=== PATIENT | male | born 1970 | race Caucasian/White ===

== ENCOUNTER 2018-10-29 03:12 | Inpatient (IN) | payer OTHER ==
[~2018-10-29] VITALS: Ht 185.4 cm; Wt 102.1 kg
[2018-10-29] MEDS ORDERED: NITROGLYCERIN OINT 1GM/INCH UDPKT TD ONE (03:30)
[2018-10-29] MEDS ORDERED: ONDANSETRON HCL 4MG/2ML INJ IV STA (03:30)
[2018-10-29] MEDS ORDERED: MORPHINE SULFATE 4 MG/ML CPJ (NOT FOR IM USE) IV STA (03:30)
[2018-10-29 04:09] LABS: BASOPHILS % 0.6 % (0.0-2.0); EOSINOPHILS % 1.4 % (0.0-5.0); HEMOGLOBIN. 15.5 g/dL (14.0-18.0); MEAN CORPUSCULAR HEMOGLOBIN 29.9 pg (28.0-32.0); MEAN CORPUSCULAR VOLUME 88.5 fL (80.0-94.0); MEAN PLATELET VOLUME 8.6 fl (7.4-10.4); MONOCYTES % 6.7 % (2.0-8.0); NEUTROPHILS % 81.3 % (40.0-76.0); PLATELET 222 x1000/uL (130-400)
[2018-10-29 04:10] LABS: CHLORIDE 107 mEq/L (98-107)
[2018-10-29] MEDS ORDERED: IOHEXOL-350 100 ML BOTTLE ONE (05:37)
[2018-10-29 09:00] VITALS: BP 138/78
[2018-10-29] MEDS ORDERED: LORAZEPAM 0.5MG TABLET PO PRN (11:15)
[2018-10-29] MEDS ORDERED: GUAIFENESIN 200MG/10ML SUGAR FREE UDC PO PRN (11:15)
[2018-10-29] MEDS ORDERED: CLONIDINE 0.1MG TABLET PO PRN (11:15)
[2018-10-29] MEDS ORDERED: DIPHENHYDRAMINE 50MG/ML VIAL IV PRN (11:15)
[2018-10-29] MEDS ORDERED: FAMOTIDINE 20MG/2ML VIAL IV SCH (11:15)
[2018-10-29] MEDS ORDERED: IPRATROPIUM/ALBUTEROL 0.5-3(2.5)MG/3ML NEB INH PRN (11:15)
[2018-10-29] MEDS ORDERED: ACETAMINOPHEN 325MG TABLET PO PRN (11:15)
[2018-10-29] MEDS ORDERED: ONDANSETRON HCL 4MG/2ML INJ IV PRN (11:15)
[2018-10-29] MEDS ORDERED: HYDROCODONE/ACETAMINOPHEN 5/325MG TABLET PO PRN (11:15)
[2018-10-29] MEDS ORDERED: NA PHOS,M-B/NA PHOS,DI-BA ENEMA 118ML PR PRN (11:15)
[2018-10-29] MEDS ORDERED: DOCUSATE SODIUM 100MG CAPSULE PO PRN (11:15)
[2018-10-29] MEDS ORDERED: ACETAMINOPHEN 650MG SUPP PR PRN (11:15)
[2018-10-29] MEDS ORDERED: MAGNESIUM/ALUMINUM HYDROXIDE/SIMETHICONE 30ML UDC PO PRN (11:15)
[2018-10-29 11:40] VITALS: BP 153/85
[2018-10-29] MEDS ORDERED: PIPERACILLIN/TAZ 3.375G PREMIX 50 ML IV SCH (13:00)
[2018-10-29] MEDS ORDERED: VANCOMYCIN 2,000 MG in DEXT 5% WATER 500 ML IV SCH (13:00)
[2018-10-29] MEDS: ASPIRIN 81MG EC TABLET PO SCH (13:41)
[2018-10-29] MEDS: AMLODIPINE 5MG TABLET PO SCH (13:41)
[2018-10-29] MEDS: ENOXAPARIN 30MG/0.3ML SYR SUBCUT SCH ×2 (13:42→21:33)
[2018-10-29] MEDS: NICOTINE 14MG PATCH TD SCH (15:00)
[2018-10-29] MEDS: CEFTRIAXONE 1 G PREMIX 50 ML IV SCH (15:20)
[2018-10-29 16:00] VITALS: BP 155/89
[2018-10-29 17:57] LABS: CREATINE KINASE 81 IU/L (39-308)
[2018-10-29 17:58] LABS: CREATINE KINASE MB FRACTION 1.4 ng/mL (0.5-3.6)
[2018-10-29 18:48] LABS: CLARITY URINE CLEAR (CLEAR); COLOR URINE YELLOW (YELLOW); KETONES URINE NEGATIVE (NEGATIVE); LEUKOCYTE ESTERASE URINE NEGATIVE (NEGATIVE); NITRITE URINE NEGATIVE (NEGATIVE); OCCULT BLOOD URINE NEGATIVE (NEGATIVE); PROTEIN URINE NEGATIVE (NEGATIVE); SPECIFIC GRAVITY URINE 1.019 (1.005-1.030); UROBILINOGEN URINE 0.2 E.U./dL (0.2-1.0)
[2018-10-29 19:02] LABS: OPIATES URINE SCREEN PRESUMTIVE POSITIVE (NEGATIVE); PHENCYCLIDINE URINE SCREEN NEGATIVE (NEGATIVE)
[2018-10-29 19:03] LABS: *AMPHETAMINES SCREEN URINE PRESUMTIVE POSITIVE (NEGATIVE); *BARBITURATES SCREEN URINE NEGATIVE (NEGATIVE); *BENZODIAZEPINES SCREEN URINE NEGATIVE (NEGATIVE); *COCAINE SCREEN URINE NEGATIVE (NEGATIVE); CANNABINOID URINE SCREEN PRESUMTIVE POSITIVE (NEGATIVE); METHADONE URINE SCREEN NEGATIVE (NEGATIVE)
[2018-10-29 20:00] VITALS: BP 137/80
[2018-10-29 21:10] LABS: HEPATITIS B SURFACE ANTIGEN NEGATIVE
[2018-10-29] MEDS: NITROGLYCERIN OINT 1GM/INCH UDPKT TD SCH (21:28)
[2018-10-29 21:40] LABS: HEPATITIS A AB IGM NEGATIVE (NEGATIVE)
[2018-10-29 23:52] LABS: CREATINE KINASE 79 IU/L (39-308); CREATINE KINASE MB FRACTION 1.5 ng/mL (0.5-3.6)
[2018-10-30 00:53] VITALS: BP 137/74
[2018-10-30] MEDS ORDERED: VANCOMYCIN 1,750 MG in DEXT 5% WATER 250 ML IV SCH (02:00)
[2018-10-30 04:00] VITALS: BP 124/84
[2018-10-30] MEDS: NITROGLYCERIN OINT 1GM/INCH UDPKT TD SCH ×2 (05:15→14:00)
[2018-10-30 06:51] LABS: BASOPHILS % 0.6 % (0.0-2.0); HEMATOCRIT. 43.9 % (42.0-52.0); HEMOGLOBIN. 15.2 g/dL (14.0-18.0); LYMPHOCYTES % 25.2 % (20.0-50.0); MEAN CORPUSCULAR HEMOGLOBIN 30.1 pg (28.0-32.0); MEAN CORPUSCULAR VOLUME 87.2 fL (80.0-94.0); MEAN PLATELET VOLUME 9.1 fl (7.4-10.4); MONOCYTES % 10.4 % (2.0-8.0); NEUTROPHILS % 59.8 % (40.0-76.0); PLATELET 210 x1000/uL (130-400); RED BLOOD CELL COUNT 5.03 mill/uL (4.7-6.1)
[2018-10-30 07:01] LABS: CHLORIDE 104 mEq/L (98-107)
[2018-10-30 07:11] LABS: LDL CHOLESTEROL 65 mg/dL (5-100)
[2018-10-30 07:12] LABS: T4 FREE 1.11 ng/dL (0.76-1.46)
[2018-10-30 07:13] LABS: HDL CHOLESTEROL 37 mg/dL (40-59)
[2018-10-30 08:00] VITALS: BP 144/92
[2018-10-30] MEDS: CEFTRIAXONE 1 G PREMIX 50 ML IV SCH (08:39)
[2018-10-30] MEDS: ASPIRIN 81MG EC TABLET PO SCH (08:41)
[2018-10-30] MEDS: NICOTINE 14MG PATCH TD SCH (08:42)
[2018-10-30] MEDS: AMLODIPINE 5MG TABLET PO SCH (08:42)
[2018-10-30] MEDS: ENOXAPARIN 30MG/0.3ML SYR SUBCUT SCH (08:43)
[2018-10-30 12:00] VITALS: BP 129/78
[2018-10-30 16:00] VITALS: BP 153/96
[2018-10-30 16:06] VITALS: BP 128/78
[2018-10-31] MEDS ORDERED: ENOXAPARIN 40MG/0.4ML SYR SUBCUT SCH (09:00)
[2018-11-01 05:06] LABS: HIV SCREEN 4G Non Reactive (Non Reactive)
== END 2018-10-30 18:14 | disposition home or self-care (01) | DRG 812 ==
LOC: ER 03:12 → 7WST 05:11 → EDBEDREQ 05:14 → EDBEDREQTM 05:14 → ENRESERV 07:08
PROVIDERS: ADMIT Internal Medicine; ATTEND Internal Medicine
DX: T43.621A Poisoning by amphetamines, accidental (unintentional), initial encounter (principal); I50.33 Acute on chronic diastolic (congestive) heart failure; D72.829 Elevated white blood cell count, unspecified; I11.0 Hypertensive heart disease with heart failure; F15.10 Other stimulant abuse, uncomplicated; F17.210 Nicotine dependence, cigarettes, uncomplicated; K60.2 Anal fissure, unspecified; K80.20 Calculus of gallbladder without cholecystitis without obstruction; R73.9 Hyperglycemia, unspecified; E87.2 Acidosis; Y92.89 Other specified places as the place of occurrence of the external cause; Z71.6 Tobacco abuse counseling
CPT/HCPCS: 36415; 71045; 71275; 76700; 80061; 80305; 82550; 82553; 83036; 83605; 83880; 84439; 84443; 84484; 85379; 86705; 86709; 86803; 87340; 87389; 93005; 93306; 93970; 96374; 97162; 99285; J0696; J1650; J2270; J2405; J2543; J3370; J7050; J7060; Q9967

== ENCOUNTER 2018-11-05 19:24 | Inpatient (IN) | payer OTHER ==
[~2018-11-05] VITALS: Ht 185.4 cm; Wt 94.3 kg
[2018-11-05] MEDS ORDERED: NITROGLYCERIN OINT 1GM/INCH UDPKT TD NR (20:00)
[2018-11-05] MEDS ORDERED: NITROGLYCERIN 0.4MG TABLET SL SL NR (20:00)
[2018-11-05] MEDS ORDERED: ASPIRIN 325MG EC TABLET PO NR (20:00)
[2018-11-05] MEDS ORDERED: ONDANSETRON HCL 4MG/2ML INJ IV ONE ×2 (20:00→23:45)
[2018-11-05] MEDS ORDERED: MORPHINE SULFATE 4 MG/ML CPJ (NOT FOR IM USE) IV NR (20:00)
[2018-11-05 20:45] LABS: CHLORIDE 103 mEq/L (98-107)
[2018-11-05 20:56] LABS: BASOPHILS % 0.5 % (0.0-2.0); HEMOGLOBIN. 16.1 g/dL (14.0-18.0); LYMPHOCYTES % 13.7 % (20.0-50.0); MEAN CORPUSCULAR HEMOGLOBIN 30.5 pg (28.0-32.0); MEAN CORPUSCULAR VOLUME 87.2 fL (80.0-94.0); MEAN PLATELET VOLUME 8.6 fl (7.4-10.4); MONOCYTES % 9.3 % (2.0-8.0); NEUTROPHILS % 73.5 % (40.0-76.0); PLATELET 260 x1000/uL (130-400); RED BLOOD CELL COUNT 5.27 mill/uL (4.7-6.1); RED CELL DISTRIBUTION WIDTH 13.1 % (11.6-14.6)
[2018-11-05 22:14] LABS: *AMPHETAMINES SCREEN URINE NEGATIVE (NEGATIVE); *BARBITURATES SCREEN URINE NEGATIVE (NEGATIVE); *BENZODIAZEPINES SCREEN URINE NEGATIVE (NEGATIVE); *COCAINE SCREEN URINE NEGATIVE (NEGATIVE); METHADONE URINE SCREEN NEGATIVE (NEGATIVE); OPIATES URINE SCREEN PRESUMTIVE POSITIVE (NEGATIVE)
[2018-11-05 22:15] LABS: CANNABINOID URINE SCREEN PRESUMTIVE POSITIVE (NEGATIVE); PHENCYCLIDINE URINE SCREEN NEGATIVE (NEGATIVE)
[2018-11-05] MEDS ORDERED: CLONIDINE 0.2MG TABLET PO ONE (23:45)
[2018-11-05] MEDS ORDERED: MORPHINE SULFATE 4 MG/ML CPJ (NOT FOR IM USE) IV ONE (23:45)
[2018-11-06] MEDS ORDERED: PANTOPRAZOLE SODIUM 40 MG/VIAL IV SCH (01:00)
[2018-11-06 04:20] VITALS: BP 119/72
[2018-11-06] MEDS ORDERED: ACETAMINOPHEN 325MG TABLET PO PRN (05:30)
[2018-11-06] MEDS ORDERED: ONDANSETRON HCL 4MG/2ML INJ IV PRN (05:30)
[2018-11-06] MEDS: MORPHINE SULFATE 2 MG/ML CPJ (NOT FOR IM USE) IV PRN ×2 (05:55→21:15)
[2018-11-06 08:00] VITALS: BP 136/70
[2018-11-06] MEDS: PANTOPRAZOLE SODIUM 40 MG/VIAL IV SCH (08:40)
[2018-11-06] MEDS: DEXT 5%/0.45% NACL KCL 20MEQ/L 1,000 ML IV SCH ×3 (08:46→21:18)
[2018-11-06 09:00] VITALS: BP 136/70
[2018-11-06 12:00] VITALS: BP 111/69
[2018-11-06 12:55] LABS: BASOPHILS % 0.7 % (0.0-2.0); EOSINOPHILS % 1.9 % (0.0-5.0); HEMATOCRIT. 42.7 % (42.0-52.0); HEMOGLOBIN. 14.7 g/dL (14.0-18.0); MEAN CORPUSCULAR VOLUME 87.1 fL (80.0-94.0); MEAN PLATELET VOLUME 8.8 fl (7.4-10.4); MONOCYTES % 11.1 % (2.0-8.0); NEUTROPHILS % 69.3 % (40.0-76.0); PLATELET 254 x1000/uL (130-400); RED CELL DISTRIBUTION WIDTH 13.1 % (11.6-14.6)
[2018-11-06 13:00] LABS: CHLORIDE 101 mEq/L (98-107)
[2018-11-06 13:08] LABS: HDL CHOLESTEROL 36 mg/dL (40-59); LDL CHOLESTEROL 73 mg/dL (5-100)
[2018-11-06 16:00] VITALS: BP 116/63
[2018-11-06 16:55] LABS: BASOPHILS % 0.7 % (0.0-2.0); EOSINOPHILS % 2.8 % (0.0-5.0); HEMATOCRIT. 43.3 % (42.0-52.0); HEMOGLOBIN. 14.7 g/dL (14.0-18.0); LYMPHOCYTES % 15.1 % (20.0-50.0); MEAN CORPUSCULAR HEMOGLOBIN 29.9 pg (28.0-32.0); MEAN CORPUSCULAR VOLUME 88.2 fL (80.0-94.0); MEAN PLATELET VOLUME 8.6 fl (7.4-10.4); MONOCYTES % 10.8 % (2.0-8.0); NEUTROPHILS % 70.6 % (40.0-76.0); PLATELET 246 x1000/uL (130-400); RED BLOOD CELL COUNT 4.91 mill/uL (4.7-6.1)
[2018-11-06 16:56] LABS: CHLORIDE 102 mEq/L (98-107)
[2018-11-06 20:00] VITALS: BP 137/78
[2018-11-07] VITALS: BP 123/59
[2018-11-07 04:00] VITALS: BP 109/67
[2018-11-07 08:00] VITALS: BP 127/76
[2018-11-07] MEDS: PANTOPRAZOLE SODIUM 40 MG/VIAL IV SCH (08:15)
[2018-11-07 12:00] VITALS: BP 131/72
[2018-11-07] MEDS: DEXT 5%/0.45% NACL KCL 20MEQ/L 1,000 ML IV SCH ×2 (12:02→22:29)
[2018-11-07 16:00] VITALS: BP 145/93
[2018-11-07 20:00] VITALS: BP 123/67
[2018-11-08] VITALS: BP 151/85
[2018-11-08 04:00] VITALS: BP 117/64
[2018-11-08 07:08] LABS: EOSINOPHILS % 6.2 % (0.0-5.0); HEMATOCRIT. 46.5 % (42.0-52.0); HEMOGLOBIN. 15.8 g/dL (14.0-18.0); LYMPHOCYTES % 30.3 % (20.0-50.0); MEAN CORPUSCULAR HEMOGLOBIN 30.4 pg (28.0-32.0); MEAN CORPUSCULAR VOLUME 89.2 fL (80.0-94.0); MEAN PLATELET VOLUME 8.9 fl (7.4-10.4); MONOCYTES % 9.9 % (2.0-8.0); NEUTROPHILS % 52.6 % (40.0-76.0); PLATELET 248 x1000/uL (130-400); RED BLOOD CELL COUNT 5.21 mill/uL (4.7-6.1); RED CELL DISTRIBUTION WIDTH 13.5 % (11.6-14.6)
[2018-11-08 07:34] LABS: CHLORIDE 104 mEq/L (98-107)
[2018-11-08 08:00] VITALS: BP 124/89
[2018-11-08] MEDS ORDERED: REGADENOSON 0.4 MG/5 ML IV ONE ×2 (08:15→09:28)
[2018-11-08] MEDS: DEXT 5%/0.45% NACL KCL 20MEQ/L 1,000 ML IV SCH (08:44)
[2018-11-08] MEDS ORDERED: FAMOTIDINE 20MG/2ML VIAL IV SCH (09:00)
[2018-11-08 12:00] VITALS: BP_SYST 114; BP_SYST 145; BP_SYST 166; BP_DIAS 74; BP_DIAS 87; BP_DIAS 98
[2018-11-08] MEDS ORDERED: CLONIDINE 0.1MG TABLET PO SCH (12:45)
== END 2018-11-08 14:37 | disposition home or self-care (01) ==
LOC: ER 19:24 → 7WST 11-06 03:19 → EDBEDREQTM 11-06 03:21 → EDBEDREQ 11-06 03:21 → ENRESERV 11-06 03:45
PROVIDERS: ADMIT Internal Medicine; ATTEND Internal Medicine
DX: K80.20 Calculus of gallbladder without cholecystitis without obstruction (principal); I11.0 Hypertensive heart disease with heart failure; I50.32 Chronic diastolic (congestive) heart failure; K52.9 Noninfective gastroenteritis and colitis, unspecified; I16.0 Hypertensive urgency; F15.90 Other stimulant use, unspecified, uncomplicated; F17.210 Nicotine dependence, cigarettes, uncomplicated; R94.31 Abnormal electrocardiogram [ECG] [EKG]; F12.90 Cannabis use, unspecified, uncomplicated; Z71.51 Drug abuse counseling and surveillance of drug abuser; Z79.899 Other long term (current) drug therapy
CPT/HCPCS: 36415; 71045; 76705; 78452; 80048; 80061; 80305; 83735; 83880; 84484; 93005; 93017; 96374; 96375; 96376; 99291; A9500; C9113; J2270; J2405; J2785; J3490

== ENCOUNTER 2019-12-04 19:30 | Emergency (ER) | payer OTHER ==
[~2019-12-04] VITALS: Ht 185.4 cm; Wt 113.2 kg
[2019-12-04] MEDS ORDERED: ONDANSETRON HCL 4MG/2ML INJ IV STA (21:08)
[2019-12-04] MEDS ORDERED: SODIUM CHLORIDE 0.9% 1,000 ML IV ONE (21:08)
[2019-12-04] MEDS ORDERED: MORPHINE SULFATE 4 MG/ML CPJ (NOT FOR IM USE) IV STA ×2 (21:08→23:08)
[2019-12-04 21:33] LABS: BASOPHILS % 1.2 % (0.0-2.0); EOSINOPHILS % 2.8 % (0.0-5.0); HEMATOCRIT. 45.8 % (42.0-52.0); HEMOGLOBIN. 15.7 g/dL (14.0-18.0); LYMPHOCYTES % 15.7 % (20.0-50.0); MEAN CORPUSCULAR VOLUME 87.5 fL (80.0-94.0); MEAN PLATELET VOLUME 9.5 fl (7.4-10.4); MONOCYTES % 6.9 % (2.0-8.0); NEUTROPHILS % 73.4 % (40.0-76.0); PLATELET 260 x1000/uL (130-400); RED BLOOD CELL COUNT 5.24 mill/uL (4.7-6.1); RED CELL DISTRIBUTION WIDTH 12.8 % (11.6-14.6)
[2019-12-04 21:39] LABS: CHLORIDE 107 mEq/L (98-107)
[2019-12-04 21:42] LABS: ETHANOL BLOOD < 10 mg/dL
[2019-12-04] MEDS ORDERED: FAMOTIDINE 20MG/2ML VIAL IV STA (23:08)
[2019-12-04] MEDS ORDERED: CEFTRIAXONE 1 G PREMIX 50 ML IV ONE (23:15)
[2019-12-05 00:10] LABS: *AMPHETAMINES SCREEN URINE NEGATIVE (NEGATIVE)
[2019-12-05 00:11] LABS: *BARBITURATES SCREEN URINE NEGATIVE (NEGATIVE); *BENZODIAZEPINES SCREEN URINE NEGATIVE (NEGATIVE); *COCAINE SCREEN URINE NEGATIVE (NEGATIVE); METHADONE URINE SCREEN NEGATIVE (NEGATIVE); OPIATES URINE SCREEN PRESUMTIVE POSITIVE (NEGATIVE)
[2019-12-05 00:12] LABS: CANNABINOID URINE SCREEN PRESUMTIVE POSITIVE (NEGATIVE); PHENCYCLIDINE URINE SCREEN NEGATIVE (NEGATIVE)
[2019-12-05] MEDS ORDERED: METOCLOPRAMIDE HCL 10MG/2ML VIAL IV ONE (01:15)
[2019-12-05] MEDS ORDERED: KETOROLAC 30MG/ML VIAL IV SCH (03:15)
[2019-12-05 06:07] VITALS: BP 123/71
== END 2019-12-05 06:30 | disposition short-term general hospital (02) ==
LOC: ER 19:30
DX: K80.20 Calculus of gallbladder without cholecystitis without obstruction (principal); R73.9 Hyperglycemia, unspecified; I10 Essential (primary) hypertension
CPT/HCPCS: 36415; 71045; 76705; 80053; 80305; 80320; 83690; 84484; 85025; 85379; 96361; 96365; 96375; 96376; 99285; J0696; J1885; J2270; J2405; J2765; J3490; J7030; G0480